=== PATIENT | male | born 1960 | race African-American/Black ===

== ENCOUNTER 2018-12-28 13:01 | Outpatient (CLI) | payer OTHER ==
--- NOTE | 2018-12-28 14:48 | MRI ---
MRI LUMBAR SPINE WITHOUT CONTRAST: HISTORY: M94.16, lumbar radiculopathy. COMPARISON: None. FINDINGS: No marrow infiltrative process. Modic type I and II end plate changes at L3-4 and L4-5. Aortic contour is nonaneurysmal. No hydronephrosis. Paraspinal musculature is normal. Levels are as follows: L1-2: Normal disk. Moderate facet arthropathy. No neural foraminal or spinal canal narrowing. L2-3: There is a very large circumferential disk-osteophyte complex. There is narrowing of the spin al canal to approximately 6 mm. There is severe bilateral neural foraminal narrowing with abutment o f the exiting and traversing nerve roots. L3-4: Severe degenerative disk space height loss. Very large circumferential disk-osteophyte comple x. Severe narrowing of the spinal canal to approximately 4 mm with crowding of the cauda equina nerv e roots. Severe left and moderate to severe right neural foraminal narrowing with abutment of both e xiting and traversing nerve roots. L4-5: Severe degenerative disk space height loss. Circumferential disk-osteophyte complex, very lar ge. Severe right and moderate to severe left neural foraminal narrowing. There is narrowing of the spinal canal with crowding of the nerve roots. The spinal canal measures approximately 4 mm. L5-S1: Moderate degenerative disk space height loss. There is a broad-based posterior disk bulge. Moderate to severe facet arthrosis. Moderate to severe left and right neural foraminal narrowing wit h abutment of both exiting and transversing nerve roots. There is abnormal edema within the left exiting L3 nerve root from compression. IMPRESSION: Multilevel severe degenerative changes with severe neural foraminal and spinal canal narrowing with c rowing of the cauda equina nerve roots which are bunched up due to impingement from narrowing caused by circumferential disk-osteophyte complexes. POS: HOME
== END 2018-12-28 13:02 | disposition home or self-care (01) ==
LOC: BICMRI 13:01 → EDBD 13:01 → BICMRI 13:02
PROVIDERS: ATTEND Neurological Surgery
DX: M47.26 Other spondylosis with radiculopathy, lumbar region (principal); M48.061 Spinal stenosis, lumbar region without neurogenic claudication
CPT/HCPCS: 72148